=== PATIENT | female | born 1960 | race Hispanic/Latino ===

== ENCOUNTER 2018-06-30 09:47 | Emergency (ER) | payer MEDICAID ==
[2018-06-30] MEDS ORDERED: Dextrose 50% Abboject 50 ML SYRINGE ONE ×2 (10:02→10:07)
[2018-06-30 10:33] LABS: Hemoglobin 11.4 g/dL (12.0-16.0); Mean Corpuscular HGB CONC 37.2 g/dL (32.0-36.0); Mean Corpuscular Hemoglobin 31.6 pg (27.0-31.0); Mean Corpuscular Volume 85.1 fL (78.0-98.0); Mean Platelet Volume 6.6 fL (7.4-10.4); Platelet Count 218 thou/uL (130-400); RBC Distribution Width 11.2 % (11.5-14.5); Red Blood Cell (RBC) Count 3.61 mill/uL (4.20-5.40); White Blood Cell (WBC) Count 10.3 thou/uL (4.8-10.8)
[2018-06-30 10:41] LABS: Band 1 % (5-11); Eosinophils 2 % (0-10); Lymphocytes 35 % (21-51); MDiff Complete? YES; Monocytes 5 % (0-10); Neutrophil 53 % (42-75); Reactive Lymphocytes 1 % (0-10)
[2018-06-30 10:43] LABS: ALT (SGPT) 21 U/L (8-55); AST (SGOT) 28 U/L (5-34); Albumin 3.8 g/dL (3.5-5.0); Alkaline Phosphatase 109 U/L (40-150); Anion Gap 18 mmol/L (10-20); BUN (Urea Nitrogen) 25 mg/dL (9.8-20.1); Bilirubin, Total 0.2 mg/dL (0.2-1.2); Calc. Creatinine Clearance 0 mL/min (70-130); Calcium 8.9 mg/dL (7.8-10.44); Carbon Dioxide 20 mmol/L (22-29); Chloride 109 mmol/L (98-107); Estimated GFR-MDRD 83; Globulin 3.9 g/dL (2.4-3.5); Glucose 38 mg/dL (70-105); Potassium 4.6 mmol/L (3.5-5.1); Protein, Total 7.7 g/dL (6.0-8.3); Sodium 142 mmol/L (136-145)
[2018-06-30 10:48] LABS: CKMB 1.8 ng/mL (0-6.6); Troponin I Less than 0.010 ng/mL (< 0.028)
[2018-07-03 09:29] LABS: Base Excess-Venous 0.1 mmol/L (0 (+/- 2.5)); Bicarbonate (HCO3v) 23.6 mmol/L (1.0-85.0); CO2 Tension (PvCO2) 33.9 mmHg (41.0-51.0); O2 Tension (PvO2) 121.9 mmHg (35.0-45.0); pH (Venous) 7.451 (7.35-7.45)
[2018-07-03 09:30] LABS: Hemoglobin - Calc 12.4 g/dL (12.0-18.0); vO2 Saturation-calc 98.9 % (94-98)
[2018-07-03 09:31] LABS: Calcium, Ionized 1.04 mmol/L (1.12-1.32); T. Carbon Dioxide 24.6 mmol/L (1.0-85.0)
== END 2018-06-30 10:58 | disposition home or self-care (01) ==
LOC: BURERS 09:47
DX: E11.649 Type 2 diabetes mellitus with hypoglycemia without coma (principal); E78.5 Hyperlipidemia, unspecified; F41.9 Anxiety disorder, unspecified; Z79.4 Long term (current) use of insulin; Z79.899 Other long term (current) drug therapy; Z79.891 Long term (current) use of opiate analgesic
CPT/HCPCS: 36416; 80053; 82330; 82435; 82553; 82803; 82805; 84132; 84295; 84484; 85014; 85025; 96360; 96374